=== PATIENT | female | born 1985 | race Caucasian/White ===

== ENCOUNTER 2016-09-26 08:48 | Outpatient (CLI) | payer BC ==
[2015-09-04 06:46] VITALS: BP 127/77
--- NOTE | 2016-09-26 11:34 | CONSULTATION REPORT ---
CONSULTING PHYSICIAN: Min Luther MD HISTORY OF PRESENT ILLNESS: Geneva Sheldon is a 31-year-old white woman who has been diagnosed with having rheumatoid arthritis. The symptoms first began in December of 2015. She is rheumatoid factor and CCP antibody positive. Her rheumatoid factor is 81. CCP antibody was over 548. Despite her present medications, she continues to have an hour of morning stiffness, pain in her wrist, neck, lower back, and knees. She used to exercise regularly and she has been unable to do so. She was initially treated with prednisone for about a [id number] which greatly helped her symptoms; however, she put on a significant amount of weight. She presently has been for the past 7 months on Plaquenil 200 mg twice a day in combination with methotrexate 8 tablets weekly. Despite that, she continues to have the symptoms as above. She has no other associated symptoms except for some dry eyes. PAST MEDICAL HISTORY: 1. Rheumatoid arthritis. 2. Hypertension PAST SURGICAL HISTORY: 1. . 2. Cholecystectomy. PRESENT MEDICATIONS: 1. Plaquenil 200 mg twice a day. 2. Folic acid 1 mg daily. 3. Methotrexate 8 tablets weekly. 4. Cyclobenzaprine 10 mg twice a day. 5. Metoprolol 25 mg daily. 6. Hydrochlorothiazide 25 mg daily. ALLERGIES: She has no known drug allergies. SOCIAL HISTORY: She is . She does not smoke. She does not drink. REVIEW OF SYSTEMS: Review of systems are otherwise negative for any change in her weight, fatigue, weakness or fever, except for the loss of the ability to exercise. She has had no red or painful eyes and no loss of vision. She has had no dry mouth or mouth sores. No difficulty swallowing. No hoarseness. She has had no chest pain, shortness of breath, cough or wheezing. She has had no nausea, vomiting, or diarrhea. No dark stools or bloody stools. No urinary symptoms. No skin rashes, hives, or photosensitivity. She did experience some hair loss. No color changes of the feet in the cold. No problems with headaches, dizziness, fainting, or muscle spasms. She does admit to some problems with anxiety, depression, and difficulty sleeping. No swollen or tender lymph nodes. She is up to date on her primary care. Note: PPD is negative. Hepatitis serologies were checked and are negative. PHYSICAL EXAMINATION: Vital Signs: T: 98.2, R: 20, heart rate: 100, BP: 145/77. Weight: 245 pounds. HEENT: No definite alopecia. External ears and nose are unremarkable. No stomatitis or glossitis. No parotid swelling. Neck: No cervical nodes. No thyroid enlargement. Lungs: Clear bilaterally with no crackles, wheezing, or rubs. Heart: Regular rate and rhythm. Normal S1 and S2. Abdomen: Slightly obese and nontender with no hepatic or splenic enlargement. Vascular: No edema or cyanosis. Nail and Skin Exam: No rashes or nodules. Joint Exam: DIPs of her right and left hand are unremarkable. She has a little tenderness at PIPs #2 and #3 bilaterally. She has right 3rd MCP tenderness and swelling. She has tenderness in both wrists. No overt swelling. She has, however, loss of safety representative. She has good range of motion at the shoulders, just some tenderness. Neck range of motion is intact. Sternoclavicular and acromioclavicular joints are unremarkable. Knees show no medial joint line tenderness. No effusion. She has good flexion and extension. No instability and good alignment. Ankles are slightly tender and MTPs are unremarkable. Achilles tendon is unremarkable. DIAGNOSTIC STUDIES: Her last labs are from September 17, 2016, her CBC was within normal limits, hemoglobin was 13.4, white count 8.39, platelets were normal. AST and ALT were normal at 16 and 18. Medical records from the [facility] Rheumatology Department are reviewed as well. IMPRESSION: Seropositive rheumatoid arthritis of moderate to severe activity and on 2 disease-modifying agents failing to respond. PLAN: I would like to start the patient on Enbrel 50 mg subcutaneous weekly. Note: Her hepatitis serologies were reviewed and are negative. PPD was negative and thus I have deemed a letter of medical of necessity. Thank you very much. Best regards, VENTURA
--- NOTE | 2016-09-26 18:35 | Diagnostic Imaging Report ---
[facility] [address] [facility].[address] [address] Report Submission Date: Sep 26, 2016 3:58:10 PM FAMILY SERVICES ASSISTANT Patient Study Name: BELGICA POOL Date: Sep 26, 2016 1:19:31 PM FAMILY SERVICES ASSISTANT Modality Type: CR Gender: F Description: LOWER EXTREMITY : 81 Institution: [facility] Physician: DONELL NI Bilateral feet, 3 views. History: Rheumatoid arthritis. Findings: Right: The osseous structure the right foot are intact without an subacute fracture. The joint space and alignment are normal. There is no evidence of erosion, periarticular osteopenia or soft tissue swelling. Small plantar and dorsal calcaneal enthesophyte is noted. Left: The osseous structure the left foot are intact without an subacute fracture. The joint space and alignment are normal. There is no evidence of erosion, periarticular osteopenia or soft tissue swelling. Small plantar and dorsal calcaneal enthesophyte is noted. Impression: 1. No osseous abnormality in the bilateral feet. 2. No evidence of osseous erosion. Electronically signed on Sep 26, 2016 3:58:10 PM FAMILY SERVICES ASSISTANT by: Brian WHITEHEAD
--- NOTE | 2016-09-26 18:36 | Diagnostic Imaging Report ---
[facility] [address] [facility].[address] [id number] Report Submission Date: Sep 26, 2016 3:59:37 PM ONLINE CONTENT EDITOR Patient Study Name: BELGICA POOL Date: Sep 26, 2016 1:14:07 PM ONLINE CONTENT EDITOR Modality Type: CR Gender: F Description: UPPER EXTREMITY : 81 Institution: [facility] Physician: DONELL NI Bilateral hands, 3 views. History: Rheumatoid arthritis. Findings: Right: The osseous structures of the right hand are intact without acute fracture. The joint space and alignment are normal. There is no evidence of erosion, periarticular osteopenia or soft tissue swelling. Left: The osseous structures of the left hand are intact without acute fracture. The joint space and alignment are normal. There is no evidence of erosion, periarticular osteopenia or soft tissue swelling. Impression: 1. No acute osseous abnormality or evidence of osseous erosion. Electronically signed on Sep 26, 2016 3:59:37 PM ONLINE CONTENT EDITOR by: Brian WHITEHEAD
== END 2016-09-26 08:50 ==
LOC: RHEU 08:48
PROVIDERS: ATTEND Internal Medicine
DX: M05.79 Rheumatoid arthritis with rheumatoid factor of multiple sites without organ or systems involvement (principal); Z51.81 Encounter for therapeutic drug level monitoring; Z79.899 Other long term (current) drug therapy
CPT/HCPCS: 99203; 99204

== ENCOUNTER 2016-11-21 10:08 | Outpatient (CLI) | payer BC ==
[2015-09-04 06:46] VITALS: BP 127/77
--- NOTE | 2016-11-24 11:29 | OP Clinic Progress Note ---
REFERRING PHYSICIAN: Jered Hannah REASON FOR VISIT: Geneva Sheldon returns for follow up on her seropositive rheumatoid arthritis of multiple joints. She is feeling significantly better now that we have added Enbrel 50 mg subcutaneous weekly. She has no joint pain, swelling, or morning stiffness. She has lost 10 pounds by diet and exercise. She has no limitations in activities of daily living. Pain is presently zero over 10. PAST MEDICAL HISTORY: 1. Rheumatoid arthritis. 2. Hypertension. PAST SURGICAL HISTORY: 1. . 2. Cholecystectomy. PRESENT MEDICATIONS: 1. Plaquenil 200 mg twice a day. 2. Folic acid 1 mg daily. 3. Methotrexate 8 tablets weekly. 4. Enbrel 50 mg subcutaneous weekly. 5. Metoprolol 25 mg daily. 6. Hydrochlorothiazide 25 mg daily. ALLERGIES: She has no known drug allergies. SOCIAL HISTORY: She is . No smoking. No drinking. REVIEW OF SYSTEMS: Dry eyes remains unchanged, otherwise, no fevers, chills, sweats, chest pain, shortness of breath, cough, wheezing, nausea, vomiting, or diarrhea. No rashes. No mouth ulcers. PHYSICAL EXAMINATION: GENERAL: On exam, she looks well. VITAL SIGNS: Height: 5 feet 4 inches. Weight: 236 pounds. T: 97.8, R: 18 , heart rate 90, BP: 140/70. HEENT: Sclerae are anicteric. Conjunctivae are pink. No stomatitis or glossitis. LUNGS: Clear bilaterally with no crackles or wheezing. HEART: Regular rhythm. Normal S1 and S2. ABDOMEN: Soft and nontender. VASCULAR: No edema or cyanosis. PERIPHERAL JOINTS: DIPs, PIPs, MCPs, wrists, elbows, shoulders, hips, knees, ankles, and feet are all unremarkable with no swelling, warmth, tenderness, or deformity. DIAGNOSTIC STUDIES: I personally reviewed the x-rays of her hands, wrists, and feet. There is no significant joint space narrowing. There is some diffuse periarticular osteopenia. No definite erosions except for left MTP #5, which shows a small periosteal defect consistent with possible erosion. IMPRESSION: 1. Seropositive rheumatoid arthritis of multiple sites, improved and in remission. 2. High risk drug. No evidence of drug toxicity. Her last labs were again reviewed. PLAN: She will get labs done a week prior to her next visit in 3 months. Thank you very much. cc: Jered WHITEHEAD
== END 2016-11-21 10:10 ==
LOC: RHEU 10:08
PROVIDERS: ATTEND Internal Medicine
DX: M05.79 Rheumatoid arthritis with rheumatoid factor of multiple sites without organ or systems involvement (principal); Z79.899 Other long term (current) drug therapy
CPT/HCPCS: 99214

== ENCOUNTER 2017-01-01 12:05 | Outpatient (CLI) | payer BC ==
[2015-09-04 06:46] VITALS: BP 127/77
[2017-01-01 12:22] LABS: BASOPHILS % 0.6 (0.0-1.5); EOSINOPHILS % 1.8 % (0.0-6.8); MEAN CORPUSCULAR HEMOGLOBIN 31.5 pg (28.0-34.0); MEAN CORPUSCULAR VOLUME 91.6 fl (80.0-100.0); MONOCYTES % 3.8 % (0.0-11.0)
[2017-01-01 12:45] LABS: eGFR (African) > 60; eGFR (Non-African) > 60
[2017-01-01 17:11] LABS: VITAMIN D, 25-HYDROXY 17 ng/mL (30-100)
== END 2017-01-01 12:06 ==
LOC: LAB 12:05
PROVIDERS: ATTEND Physician Assistant
DX: R42 Dizziness and giddiness (principal)
CPT/HCPCS: 36415; 80053; 82306; 82607; 83735; 85025

== ENCOUNTER 2017-02-17 11:27 | Outpatient (CLI) | payer BC ==
[2015-09-04 06:46] VITALS: BP 127/77
[2017-02-17 11:48] LABS: BASOPHILS % 0.4 (0.0-1.5); EOSINOPHILS % 1.5 % (0.0-6.8); MEAN CORPUSCULAR HEMOGLOBIN 31.4 pg (28.0-34.0); MEAN CORPUSCULAR VOLUME 90.4 fl (80.0-100.0); NEUTROPHILS # 7.1 # k/uL (1.4-7.7)
[2017-02-17 12:09] LABS: eGFR (African) > 60; eGFR (Non-African) > 60
== END 2017-02-17 11:30 ==
LOC: LAB 11:27
PROVIDERS: ATTEND Internal Medicine
DX: M05.79 Rheumatoid arthritis with rheumatoid factor of multiple sites without organ or systems involvement (principal); Z79.899 Other long term (current) drug therapy
CPT/HCPCS: 36415; 80053; 85025; 85651

== ENCOUNTER 2017-02-20 09:43 | Outpatient (CLI) | payer BC ==
[2015-09-04 06:46] VITALS: BP 127/77
--- NOTE | 2017-02-23 13:25 | OP Clinic Progress Note ---
REASON FOR VISIT: Geneva Sheldon returns for follow up of seropositive rheumatoid arthritis of multiple joints. She is doing very well on her present regimen with no joint swelling, warmth, tenderness, morning stiffness, or pain. No limitations on activities of daily living. No new deformities. She continues to lose weight by diet and exercise. PAST MEDICAL HISTORY: 1. Rheumatoid arthritis. 2. Hypertension. PAST SURGICAL HISTORY: 1. . 2. Cholecystectomy. PRESENT MEDICATIONS: 1. Methotrexate 8 tablets weekly. 2. Enbrel 50 mg subcutaneous weekly. 3. Metoprolol 25 mg daily. 4. Hydrochlorothiazide 25 mg daily. 5. Folic acid 1 mg daily. 6. Plaquenil 200 mg twice a day. ALLERGIES: No known drug allergies. REVIEW OF SYSTEMS: No fevers, chills, sweats, chest pain, shortness of breath, cough, wheezing, nausea, vomiting, or diarrhea. No skin rashes or nodules. No numbness or tingling of the extremities. Her child will be starting kindergarten. PHYSICAL EXAMINATION: VITAL SIGNS: Height: 5 feet 4 inches. Weight: 240. T: 97.8, R: 18, heart rate 70, BP: 113/74. HEENT: Sclerae are anicteric. Conjunctivae are pink. No stomatitis or glossitis. LUNGS: Clear bilaterally with no crackles or wheezing. HEART: Regular rhythm. ABDOMEN: Soft and nontender. VASCULAR: No edema or cyanosis. PERIPHERAL JOINTS: No synovitis at the DIPs, PIPs, MCPs, wrists, elbows, shoulders, hips, knees, ankles, and feet. IMPRESSION: 1. Seropositive rheumatoid arthritis of multiple joints, doing well. 2. High risk drugs. We will check her labs today for disease activity and drug toxicity. PLAN: I will see her back in 3 months. Thank you very much. Best regards, cc: KEVIN Haddad
== END 2017-02-20 13:51 ==
LOC: RHEU 09:43
PROVIDERS: ATTEND Internal Medicine
DX: M05.79 Rheumatoid arthritis with rheumatoid factor of multiple sites without organ or systems involvement (principal); Z79.899 Other long term (current) drug therapy
CPT/HCPCS: 99214

== ENCOUNTER 2017-05-22 14:38 | Outpatient (CLI) | payer BC ==
[2015-09-04 06:46] VITALS: BP 127/77
--- NOTE | 2017-05-22 15:48 | OP Clinic Progress Note ---
REASON FOR VISIT: Geneva Sheldon returns for follow up of seropositive rheumatoid arthritis of multiple joints on triple therapy consisting of methotrexate, Plaquenil, and Enbrel. She is doing quite well. No joint swelling, warmth, tenderness, morning stiffness or pain. She did have some left knee issues. 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 She is doing physical therapy. Unfortunately, she has had to stop exercising and she is no longer losing any weight. PAST MEDICAL HISTORY: 1. Rheumatoid arthritis. 2. Hypertension 3. . 4. Cholecystectomy. PRESENT MEDICATIONS: 1. Methotrexate 8 tablets weekly. 2. Enbrel 50 mg subcutaneous weekly. 3. Metoprolol 25 mg daily. 4. Hydrochlorothiazide 25 mg daily. 5. Folic acid 1 mg daily. 6. Plaquenil 200 mg twice a day. ALLERGIES: She has no known drug allergies. REVIEW OF SYSTEMS: No fevers, chills, sweats, chest pain, shortness of breath, cough, wheezing, nausea, vomiting, or diarrhea. PHYSICAL EXAMINATION: VITAL SIGNS: Height: 5 feet 4 inches. Weight: 250 pounds. T: 97.4, R: 20 , heart rate 95, BP: 147/93. HEENT: Sclerae are anicteric. Conjunctivae are pink. No stomatitis or glossitis. LUNGS: Clear bilaterally with no crackles or wheezing. HEART: Regular rhythm. ABDOMEN: Soft and nontender. VASCULAR: No edema or cyanosis. PERIPHERAL JOINTS: No synovitis at the DIPs, PIPs, MCPs, wrists, elbows, shoulders, hips, knees, ankles, and feet. IMPRESSION: 1. Rheumatoid arthritis, in remission. 2. High risk drug. No evidence of drug toxicity. PLAN: 1. We will check her labs in the coming week and again in 3 months. 2. I will see her back in follow up in August. Thank you very much. cc: KEVIN Haddad
== END 2017-05-22 14:40 ==
LOC: RHEU 14:38
PROVIDERS: ATTEND Internal Medicine
DX: M05.9 Rheumatoid arthritis with rheumatoid factor, unspecified (principal)
CPT/HCPCS: 99213

== ENCOUNTER 2017-05-25 08:06 | Outpatient (CLI) | payer BC ==
[2015-09-04 06:46] VITALS: BP 127/77
[2017-05-25 08:26] LABS: BASOPHILS % 0.9 (0.0-1.5); EOSINOPHILS % 3.8 % (0.0-6.8); MEAN CORPUSCULAR HEMOGLOBIN 31.5 pg (28.0-34.0); MEAN CORPUSCULAR VOLUME 88.4 fl (80.0-100.0); MONOCYTES % 3.5 % (0.0-11.0); NEUTROPHILS # 5.7 # k/uL (1.4-7.7)
[2017-05-25 08:48] LABS: eGFR (African) > 60; eGFR (Non-African) > 60
== END 2017-05-25 08:07 ==
LOC: LAB 08:06
PROVIDERS: ATTEND Internal Medicine
DX: M05.79 Rheumatoid arthritis with rheumatoid factor of multiple sites without organ or systems involvement (principal)
CPT/HCPCS: 36415; 80053; 85025; 85651; 86140

== ENCOUNTER 2017-06-22 11:01 | Outpatient (CLI) | payer BC, OTHER ==
[2015-09-04 06:46] VITALS: BP 127/77
[2017-06-22 11:09] LABS: BASOPHILS % 0.9 (0.0-1.5); EOSINOPHILS % 2.2 % (0.0-6.8); MEAN CORPUSCULAR HEMOGLOBIN 30.7 pg (28.0-34.0); MEAN CORPUSCULAR VOLUME 89.5 fl (80.0-100.0); MONOCYTES % 4.6 % (0.0-11.0); NEUTROPHILS # 3.9 # k/uL (1.4-7.7)
== END 2017-06-22 11:02 ==
LOC: LAB 11:01
PROVIDERS: ATTEND Physician Assistant
DX: R59.0 Localized enlarged lymph nodes (principal)
CPT/HCPCS: 36415; 85025

== ENCOUNTER 2017-08-17 09:51 | Outpatient (CLI) | payer BC ==
[2015-09-04 06:46] VITALS: BP 127/77
[2017-08-17 10:22] LABS: BASOPHILS % 0.8 (0.0-1.5); EOSINOPHILS % 3.2 % (0.0-6.8); MEAN CORPUSCULAR HEMOGLOBIN 30.8 pg (28.0-34.0); MEAN CORPUSCULAR VOLUME 88.5 fl (80.0-100.0); MONOCYTES % 4.5 % (0.0-11.0); NEUTROPHILS # 3.3 # k/uL (1.4-7.7)
[2017-08-17 11:06] LABS: eGFR (African) > 60; eGFR (Non-African) > 60
== END 2017-08-17 10:00 ==
LOC: LAB 09:51
PROVIDERS: ATTEND Internal Medicine
DX: M05.79 Rheumatoid arthritis with rheumatoid factor of multiple sites without organ or systems involvement (principal)
CPT/HCPCS: 36415; 80053; 85025; 85651; 86140

== ENCOUNTER 2017-08-21 10:55 | Outpatient (CLI) | payer BC ==
[2015-09-04 06:46] VITALS: BP 127/77
--- NOTE | 2017-08-21 14:04 | OP Clinic Progress Note ---
REASON FOR VISIT: Geneva Sheldon returns for follow up on her seropositive rheumatoid arthritis of multiple sites and she is doing quite well. She did have a cold and stopped her methotrexate for about 4 weeks and noted recurrent stiffness in her hands. Otherwise, no fevers, chills, sweats, chest pain, shortness of breath, cough, or wheezing. At the time of her illness, she had some slight sputum. She was not given an antibiotic. PAST MEDICAL HISTORY: 1. Rheumatoid arthritis. 2. Hypertension. 3. . 4. Cholecystectomy. PRESENT MEDICATIONS: 1. Methotrexate 8 tablets weekly. 2. Enbrel 50 mg subcutaneous weekly. 3. Plaquenil 200 mg twice a day. 4. Folic acid 1 mg daily. 5. Metoprolol. 6. Hydrochlorothiazide. ALLERGIES: She has no known drug allergies. REVIEW OF SYSTEMS: As above. PHYSICAL EXAMINATION: GENERAL: She looks well. VITAL SIGNS: Height: 5 feet 4 inches. Weight: 250 pounds. T: 96.7, R: 20, heart rate 96, BP: 150/100. HEENT: Conjunctivae are pink. No stomatitis or glossitis. LUNGS: Clear. HEART: Regular rhythm. ABDOMEN: Soft. VASCULAR: No edema or cyanosis. PERIPHERAL JOINTS: No synovitis at the DIPs, PIPs, MCPs, wrists, elbows, shoulders, hips, knees, ankles, and feet. IMPRESSION: 1. Seropositive rheumatoid arthritis. Doing well. 2. High risk drug. She had labs on August 17 which were reviewed and they were within normal limits including a CBC, CMP, and a sedimentation rate of 8. PLAN: I will see her back in 3 months. She will get her labs done a week before. Best regards, KEVIN Haddad
== END 2017-08-21 11:00 ==
LOC: RHEU 10:55
PROVIDERS: ATTEND Internal Medicine
DX: M05.89 Other rheumatoid arthritis with rheumatoid factor of multiple sites (principal); Z79.899 Other long term (current) drug therapy
CPT/HCPCS: 99213

== ENCOUNTER 2017-09-10 07:39 | Outpatient (CLI) | payer BC ==
[2015-09-04 06:46] VITALS: BP 127/77
[2017-09-10 09:12] LABS: BASOPHILS % 0.7 (0.0-1.5); EOSINOPHILS % 2.1 % (0.0-6.8); MEAN CORPUSCULAR VOLUME 87.4 fl (80.0-100.0); MONOCYTES % 5.1 % (0.0-11.0); NEUTROPHILS # 3.3 # k/uL (1.4-7.7)
[2017-09-10 09:16] LABS: eGFR (African) > 60; eGFR (Non-African) > 60
== END 2017-09-10 07:40 ==
LOC: LAB 07:39
PROVIDERS: ATTEND Physician Assistant
DX: Z00.00 Encounter for general adult medical examination without abnormal findings (principal)
CPT/HCPCS: 36415; 80053; 80061; 85025

== ENCOUNTER 2017-11-17 08:15 | Outpatient (CLI) | payer BC ==
[2015-09-04 06:46] VITALS: BP 127/77
[2017-11-17 08:31] LABS: BASOPHILS % 0.6 (0.0-1.5); EOSINOPHILS % 2.2 % (0.0-6.8); MEAN CORPUSCULAR VOLUME 90.5 fl (80.0-100.0); MONOCYTES % 4.5 % (0.0-11.0)
[2017-11-17 08:51] LABS: eGFR (African) > 60; eGFR (Non-African) > 60
== END 2017-11-17 08:20 ==
LOC: LAB 08:15
PROVIDERS: ATTEND Internal Medicine
DX: M05.79 Rheumatoid arthritis with rheumatoid factor of multiple sites without organ or systems involvement (principal)
CPT/HCPCS: 36415; 80053; 85025; 86140

== ENCOUNTER 2017-11-20 10:35 | Outpatient (CLI) | payer BC ==
[2015-09-04 06:46] VITALS: BP 127/77
--- NOTE | 2017-11-25 13:29 | OP Clinic Progress Note ---
REASON FOR VISIT: Geneva Sheldon returns for follow up on her seropositive rheumatoid arthritis of multiple sites. She is doing well. She is not having any joint swelling, warmth, tenderness, morning stiffness or pain. She has managed to lose weight by dieting, at least 20 pounds, and feels significantly better. She has noted that some foods make her joints act up. PAST MEDICAL HISTORY: 1. Seropositive rheumatoid arthritis. 2. Hypertension. 3. . 4. Cholecystectomy. PRESENT MEDICATIONS: 1. Methotrexate 8 tablets weekly. 2. Enbrel 50 mg subcutaneous weekly. 3. Plaquenil 200 mg twice a day. 4. Folic acid 1 mg daily. 5. Metoprolol. 6. Hydrochlorothiazide. ALLERGIES: She has no known drug allergies. REVIEW OF SYSTEMS: No fevers, chills, sweats, chest pain, shortness of breath, cough, wheezing, nausea, vomiting, or diarrhea. PHYSICAL EXAMINATION: General: She looks well. VITAL SIGNS: Weight: 235. T: 97.6, heart rate 74, BP: 140/80. HEENT: Sclerae are anicteric. Conjunctivae are pink. No stomatitis or glossitis. LUNGS: Clear. HEART: Regular rhythm. ABDOMEN: Soft. VASCULAR: No edema or cyanosis. PERIPHERAL JOINTS: No synovitis at the DIPs, PIPs, MCPs, wrists, elbows, shoulders, hips, knees, ankles, and feet. LABORATORIES: I reviewed her labs, CBC and CMP, from November 17 and they were unremarkable. Her CRP has improved and it is presently down to 0.57. IMPRESSION: Seropositive rheumatoid arthritis, active and stable. Doing well. PLAN: 1. I will see her back in 3 months. 2. We will check her labs a week before. Best regards, cc: KEVIN Haddad
== END 2017-11-20 13:29 ==
LOC: RHEU 10:35
PROVIDERS: ATTEND Internal Medicine
DX: M06.89 Other specified rheumatoid arthritis, multiple sites (principal)
CPT/HCPCS: 99213; 99214

== ENCOUNTER 2018-02-17 13:03 | Outpatient (CLI) | payer BC ==
[2015-09-04 06:46] VITALS: BP 127/77
[2018-02-17 13:24] LABS: BASOPHILS % 0.5 (0.0-1.5); EOSINOPHILS % 2.8 % (0.0-6.8); MEAN CORPUSCULAR HEMOGLOBIN 30.7 pg (28.0-34.0); MEAN CORPUSCULAR VOLUME 92.5 fl (80.0-100.0)
[2018-02-17 13:49] LABS: eGFR (African) > 60; eGFR (Non-African) > 60
== END 2018-02-17 13:04 ==
LOC: LAB 13:03
PROVIDERS: ATTEND Internal Medicine
DX: M05.79 Rheumatoid arthritis with rheumatoid factor of multiple sites without organ or systems involvement (principal); Z79.899 Other long term (current) drug therapy
CPT/HCPCS: 36415; 80053; 85025; 86140

== ENCOUNTER 2018-02-19 09:56 | Outpatient (CLI) | payer BC ==
[2015-09-04 06:46] VITALS: BP 127/77
--- NOTE | 2018-02-25 07:16 | OP Clinic Progress Note ---
REASON FOR VISIT: Geneva Sheldon returns for follow up on her seropositive rheumatoid arthritis of multiple sites. She is doing well except for her left ankle and maybe the left knee, worse with walking. It is intermittent. She has not noted any swelling or deformities. Otherwise, no new medical problems. On review of systems, she continues to lose weight by dieting. She is down from 235 on her last visit to 230 at present. Otherwise, no fevers, chills, sweats, chest pain, shortness of breath, cough, wheezing, nausea, vomiting or diarrhea. She has no numbness or tingling of her extremities. PAST MEDICAL AND SURGICAL HISTORY: 1. Seropositive rheumatoid arthritis. 2. Hypertension. 3. . 4. Cholecystectomy. PRESENT MEDICATIONS: 1. Methotrexate 8 tablets weekly. 2. Plaquenil 200 mg twice a day. 3. Folic acid 1 mg daily. 4. Metoprolol. 5. Hydrochlorothiazide. 6. Enbrel 50 mg subcutaneous weekly. ALLERGIES: She has no known drug allergies. PHYSICAL EXAMINATION: GENERAL: She looks well. VITAL SIGNS: Height: 5 feet 4 inches. Weight: 230. T: 97.8, R: 20, heart rate of 74, BP: 140/77 HEENT: Sclerae are anicteric. Conjunctivae are pink. No stomatitis or glossitis. LUNGS: Clear with no crackles or wheezing. HEART: Regular rate and rhythm. ABDOMEN: Soft and nontender. VASCULAR: No edema or cyanosis. PERIPHERAL JOINTS: No synovitis at the DIPs, PIPs, MCPs, wrists, elbows, shoulders, hips, knees, ankles, and feet. Straight leg raising test on the left was unremarkable. LABORATORIES: Her labs from February 17 were reviewed. CBC was within normal limits. CMP within normal limits. Slightly cholesterol at 205. AST and ALT were normal. Vitamin D was low at 17. IMPRESSION: 1. Seropositive rheumatoid arthritis, active and stable. 2. High risk drug. No evidence of drug toxicity. PLAN: No changes at this time. I will see her back in 3 months. We will keep an eye on her vitamin D. Thank you very much. Best regards, VENTURA
== END 2018-02-19 12:21 ==
LOC: RHEU 09:56
PROVIDERS: ATTEND Internal Medicine
DX: M05.9 Rheumatoid arthritis with rheumatoid factor, unspecified (principal); Z79.899 Other long term (current) drug therapy
CPT/HCPCS: 99213; 99214

== ENCOUNTER 2018-05-03 08:35 | Outpatient (CLI) | payer BC ==
[2015-09-04 06:46] VITALS: BP 127/77
[2018-05-03 09:19] LABS: BASOPHILS % 0.9 (0.0-1.5); EOSINOPHILS % 5.5 % (0.0-6.8); MEAN CORPUSCULAR HEMOGLOBIN 31.3 pg (28.0-34.0); MEAN CORPUSCULAR VOLUME 88.6 fl (80.0-100.0); MONOCYTES % 7.2 % (0.0-11.0); NEUTROPHILS # 2.9 # k/uL (1.4-7.7)
--- NOTE | 2018-05-03 09:53 | Diagnostic Imaging Report ---
FLOWER BOWIE [facility] [address] [facility].[address] [address] Report Submission Date: May 03, 2018 9:27:29 AM CDT Patient Study Name: BELGICA POOL Date: May 03, 2018 8:49:04 AM CDT Modality Type: DX Gender: F Description: CHEST : 81 Institution: [facility] Physician: FLOWER BOWIE Examination: PA and lateral chest. History: Evaluate lung valdez. STERNAL CHEST PAIN X 1 DAY (Hx) Findings: PA and lateral views of the chest demonstrates a normal cardiac and mediastinal silhouette. Elevated right hemidiaphragm. No focal infiltrate. No blunting of the costophrenic margins. Osseous structures are appropriate for age. Impression: No acute pulmonary process. Electronically signed on May 03, 2018 9:27:29 AM CDT by: Bam WHITEHEAD
== END 2018-05-03 08:36 ==
LOC: RHEU 08:35
PROVIDERS: ATTEND Internal Medicine
DX: R07.1 Chest pain on breathing (principal)
CPT/HCPCS: 71046; 85025; 85379

== ENCOUNTER 2018-05-25 09:17 | Outpatient (CLI) | payer BC ==
[2015-09-04 06:46] VITALS: BP 127/77
[2018-05-25 12:55] LABS: eGFR (Non-African) > 60
[2018-05-26 01:51] LABS: BASO % 0.5 % (0.0-1.5); EOS % 2.6 % (0.0-6.8); LYMPH ABS # 1.89 thou/uL (0.60-4.00); MCH. 31.3 pg (28.0-34.0); MCV 89.4 fL (80.0-100.0); MONOCYTE % 4.9 % (0.0-11.0); MONOCYTE ABS # 0.31 thou/uL (0.00-0.90); PLATELET COUNT 273 thou/uL (130-400)
== END 2018-05-25 09:20 ==
LOC: LAB 09:17
PROVIDERS: ATTEND Internal Medicine
DX: M05.79 Rheumatoid arthritis with rheumatoid factor of multiple sites without organ or systems involvement (principal)
CPT/HCPCS: 80053; 85025; 85651; 86140

== ENCOUNTER 2018-06-25 12:48 | Outpatient (CLI) | payer BC ==
[2015-09-04 06:46] VITALS: BP 127/77
--- NOTE | 2018-06-28 14:59 | OP Clinic Progress Note ---
REASON FOR VISIT: Geneva Sheldon returns for follow up of seropositive rheumatoid arthritis of multiple sites. She is doing well with no joint pain in her right or left upper extremities. No new medical problems. PAST MEDICAL HISTORY: 1. Seropositive rheumatoid arthritis. 2. Hypertension. 3. . 4. Cholecystectomy. PRESENT MEDICATIONS: 1. Methotrexate 4 tablets once a week. 2. Plaquenil 200 mg twice a day. 3. Folic acid 1 mg daily. 4. Enbrel 50 mg subcutaneous weekly. 5. Metoprolol. 6. Hydrochlorothiazide. ALLERGIES: She has no known drug allergies. SOCIAL HISTORY: She is employed here at [employer]. Her insurance is not going to change in September. She will remain on her 's insurance. REVIEW OF SYSTEMS: No fevers, chills, sweats, chest pain, shortness of breath, cough, wheezing, nausea, vomiting, or diarrhea. Her weight has been stable. PHYSICAL EXAMINATION: GENERAL: She looks well. VITAL SIGNS: BP: 130/85, P: 71, R: 16, T: 98.7. Weight: 230. Pain is zero over 10. HEENT: Sclerae are anicteric. Conjunctivae are pink. No stomatitis or glossitis. LUNGS: Clear bilaterally with no crackles or wheezing. HEART: Regular rate and rhythm. ABDOMEN: Soft and nontender. VASCULAR: No edema or cyanosis. PERIPHERAL JOINTS: No synovitis at the DIPs, PIPs, MCPs, wrists, elbows, shoulders, hips, knees, ankles, and feet. LABORATORY: She brings in labs from April and May. Those were reviewed and in the record. ALT and AST were 38 and 20, respectively. White count is 6.26, hemoglobin 14.7. IMPRESSION: 1. Seropositive rheumatoid arthritis, active and stable. Doing well. 2. High risk drug. PLAN: 1. She will get labs done in 2 months. 2. I will see her back in October. Thank you very much. Best regards, VENTURA
== END 2018-06-25 12:50 ==
LOC: RHEU 12:48
PROVIDERS: ATTEND Internal Medicine
DX: M05.9 Rheumatoid arthritis with rheumatoid factor, unspecified (principal); Z79.899 Other long term (current) drug therapy
CPT/HCPCS: 99213; 99214

== ENCOUNTER 2018-08-23 10:03 | Outpatient (CLI) | payer BC ==
[2015-09-04 06:46] VITALS: BP 127/77
[2018-08-23 11:04] LABS: eGFR (Non-African) > 60
[2018-08-23 11:05] LABS: MEAN CORPUSCULAR HEMOGLOBIN 29.7 pg (28.0-34.0)
[2018-08-23 11:06] LABS: BASOPHILS % 0.4 (0.0-1.5); EOSINOPHILS % 2.6 % (0.0-6.8); MONOCYTES % 5.9 % (0.0-11.0); NEUTROPHILS # 3.5 # k/uL (1.4-7.7)
== END 2018-08-23 10:08 | disposition home or self-care (01) ==
LOC: LAB 10:03
PROVIDERS: ATTEND Internal Medicine
DX: M05.79 Rheumatoid arthritis with rheumatoid factor of multiple sites without organ or systems involvement (principal)
CPT/HCPCS: 36415; 80053; 85025; 85651

== ENCOUNTER 2018-08-27 08:22 | Outpatient (CLI) | payer BC ==
[2015-09-04 06:46] VITALS: BP 127/77
--- NOTE | 2018-09-08 09:04 | OP Clinic Progress Note ---
REASON FOR VISIT: Geneva Sheldon returns for follow up of seropositive rheumatoid arthritis. She is doing quite well. She has no joint pain, stiffness, or swelling. There have been no changes in medications or past medical history. REVIEW OF SYSTEMS: No fevers, chills, sweats, chest pain, shortness of breath, cough, wheezing, nausea, vomiting or diarrhea. PHYSICAL EXAMINATION: VITAL SIGNS: BP: 130/89, P: 100, T: 98. HEENT: Unremarkable. JOINTS: No synovitis at the DIPs, PIPs, MCPs, wrists, elbows, shoulders, hips, knees, ankles, and feet. IMPRESSION: Seropositive rheumatoid arthritis, active and stable. PLAN: Follow up in 3 months. VENTURA
== END 2018-08-27 08:28 ==
LOC: RHEU 08:22
PROVIDERS: ATTEND Internal Medicine
DX: M05.9 Rheumatoid arthritis with rheumatoid factor, unspecified (principal)
CPT/HCPCS: 99212

== ENCOUNTER 2018-09-08 10:11 | Outpatient (CLI) | payer BC ==
[2015-09-04 06:46] VITALS: BP 127/77
[2018-09-08 10:26] LABS: BASOPHILS % 0.4 (0.0-1.5); EOSINOPHILS % 2.8 % (0.0-6.8); MEAN CORPUSCULAR HEMOGLOBIN 28.7 pg (28.0-34.0); MONOCYTES % 4.4 % (0.0-11.0)
== END 2018-09-08 10:12 ==
LOC: LAB 10:11
PROVIDERS: ATTEND Nurse Practitioner Family
DX: R58 Hemorrhage, not elsewhere classified (principal)
CPT/HCPCS: 36415; 84703; 85025

== ENCOUNTER 2018-09-15 12:48 | Outpatient (CLI) | payer BC ==
[2015-09-04 06:46] VITALS: BP 127/77
--- NOTE | 2018-09-16 18:31 | Diagnostic Imaging Report ---
ALEXA GONZALES [facility] [address] [facility] [address] [address] Report Submission Date: Sep 16, 2018 2:48:47 PM BUILDING MAINTENANCE SUPERVISOR Patient Study Name: BELGICA POOL Date: Sep 15, 2018 1:06:11 PM BUILDING MAINTENANCE SUPERVISOR Modality Type: US Gender: F Description: US TRV PELVIS : 81 Institution: [facility] Physician: ALEXA GONZALES Pelvic ultrasound History: Heavy bleeding with clots Transverse and longitudinal images were obtained through the pelvis endovaginally. There are no relevant comparison studies. The uterus measures 8.9 x 4.7 x 5.1 cm in greatest dimension. The endometrium measures up to 1.4 cm. This degree of endometrial stripe thickening would not be unexpected in a premenopausal female at mid to late cycle. No uterine fibroids are noted. The left ovary measures 2.3 x 2.0 x 1.7 cm in greatest dimension with an ovarian volume of 4 mm. The right ovary measures 3.0 x 1.9 x 1.9 cm with a volume of 5.7 mL. There is normal flow to both ovaries. Both ovaries appear normal. There is no free fluid in the pelvis. Impression: Normal ovaries. The endometrium measures 1.4 cm in thickness. The myometrium is normal. Electronically signed on Sep 16, 2018 2:48:47 PM BUILDING MAINTENANCE SUPERVISOR by: Anne WHITEHEAD
== END 2018-09-15 12:50 | disposition home or self-care (01) ==
LOC: RAD 12:48
PROVIDERS: ATTEND Nurse Practitioner Family
DX: N92.1 Excessive and frequent menstruation with irregular cycle (principal)
CPT/HCPCS: 76830

== ENCOUNTER 2018-09-30 14:15 | Outpatient (CLI) | payer BC ==
[2015-09-04 06:46] VITALS: BP 127/77
--- NOTE | 2018-10-07 09:36 | OP Clinic Progress Note ---
SUBJECTIVE: Geneva Sheldon is a 33-year-old female who presents today complaining of right great toenail pain. She states that she has had this for quite some time now and has been waiting to get it fixed. She states that the pain is mostly due to when the toenail is pressed down and seems to affect the lateral border, as well as directly under the nail. She admits that she has had debris under the nail which has been causing pain and problems. She does not admit to any other pain or problems with the foot specifically at this time. The patient states that she would like to have the toenail removed if possible and due to the discoloration in her toenail, as well as the subungual debris, would like to consider having fungal treatment as well. The patient does not admit to any fevers, chills, nausea, vomiting, shortness of breath or chest pain or any sort of illness at this time. She does have rheumatoid arthritis but she seems to be doing well at this time and blood flow seems to be great. OBJECTIVE: VITAL SIGNS: BP: 158/92, heart rate 108, R: 16, T: 98.0 degrees Fahrenheit. VASCULAR: DP and PT pulses of the right foot are at 2+. Capillary refill time is less than 3 seconds to the toes of the right foot. There is no edema noted of the right foot. DERMATOLOGIC: There is white discoloration and thickness and subungual debris noted to the right great toenail. There is no erythema or open lesions or skin lesions noted to the right foot. MUSCULOSKELETAL: There is pain on palpation noted especially with direct palpation against the dorsal aspect of the right great toenail but also a little bit at the lateral nail border today. There are no other gross abnormalities noted. NEUROLOGIC: Light touch sensation is intact to the toes of the right foot. ASSESSMENT: 1. Onychocryptosis, right hallux, lateral border. 2. Onychomycosis, right hallux. A discussion was had regarding possibilities of removing the toenail due to pain directly to the nail with subungual debris, as well as considering Lamisil for treatment. The patient elects to go ahead and have the toenail removed completely as a temporary avulsion of the total nail and to begin Lamisil treatment, as she had recent labs showing her liver function is fine. The toenail was removed as procedure #1 describes below and she is being placed on Lamisil for the next 3 months. We will see her in 1 week for follow up of the toenail and we will see her again 2 weeks later or at the 6 week total tay to make sure she is improving with the Lamisil and get labs at that time. She already has labs scheduled for the middle of November, so we will just look for those results. PROCEDURE #1: Total right great toenail avulsion, temporary. An alcohol swab was utilized to clean the toe. Then 7 mL of a 1:1 mix of 2% lidocaine plain and 0.5% Marcaine plain were injected and anesthesia was obtained. It should be noted that 6 mL were injected initially and we needed to inject another 1 mL as we noted a little bit of pain on the medial border. After anesthesia was obtained, the procedure was continued with a Betadine swab to clean the great toe. The great toe then had the eponychium released from the dorsal toenail, as well as the nail bed released from the nail and the entire toenail was removed. Bleeding was controlled with hemostasis. The toenail bed was free of any sort of laceration or concerning areas. The entire nail was checked and found to be absent from under the eponychial fold. The wound site was flushed with a copious amount of normal saline and then dressed with triple antibiotic ointment, 4 x 4 gauze, 2-inch Raza, and 1-inch Coban. The patient was given instructions regarding removing this dressing tomorrow and beginning dressing changes of antibiotic ointment and a Band-Aid daily. She knows that she is not to bathe at this time, but she is able to shower as long as she washes her toe last. A prescription for Lamisil is being written and sent to her pharmacy at [facility] where she can pick that up and begin utilizing that immediately. PLAN: We will see the patient again in 1 week as mentioned above to make sure she is healing well and then possibly 2 weeks later and then 3 weeks after that to check labs and make sure that her nail is coming more clear. The patient has no other questions and is grateful for the procedure and is glad that it went well. It should be noted that risks and benefits of the procedure were discussed with the patient that include bleeding, infection, etc., and the patient had agreed by both written and verbal consent to go forward with the procedure today as described above. VENTURA
== END 2018-09-30 14:16 ==
LOC: POD 14:15
PROVIDERS: ATTEND Podiatrist Foot & Ankle Surgery
DX: L60.0 Ingrowing nail (principal); B35.1 Tinea unguium
CPT/HCPCS: 11730; J3490

== ENCOUNTER 2018-10-13 07:11 | Outpatient (CLI) | payer BC ==
[2015-09-04 06:46] VITALS: BP 127/77
[2018-10-13 17:49] LABS: eGFR (Non-African) > 60
== END 2018-10-13 07:13 ==
LOC: LAB 07:11
PROVIDERS: ATTEND Nurse Practitioner Family
DX: I10 Essential (primary) hypertension (principal)
CPT/HCPCS: 36415; 80053; 80061

== ENCOUNTER 2018-12-02 07:42 | Outpatient (CLI) | payer BC ==
[2015-09-04 06:46] VITALS: BP 127/77
== END 2018-12-02 07:44 ==
LOC: LAB 07:42
PROVIDERS: ATTEND Podiatrist Foot & Ankle Surgery
DX: B35.1 Tinea unguium (principal)
CPT/HCPCS: 36415; 80076

== ENCOUNTER 2018-12-20 11:19 | Outpatient (CLI) | payer BC ==
[2015-09-04 06:46] VITALS: BP 127/77
--- NOTE | 2018-12-20 12:48 | Diagnostic Imaging Report ---
DAVID PINA [facility] [address] [facility].[address] [address] Report Submission Date: Dec 20, 2018 12:01:26 PM CDT Patient Study Name: BELGICA POOL Date: Dec 20, 2018 11:23:29 AM CDT Modality Type: DX Gender: F Description: BILAT ANKLES 3 VIEW : 81 Institution: [facility] Physician: DAVID PINA Bilateral ankles History: Chronic pain Three views of the bilateral ankles were obtained at weight-bearing which demonstrates no abnormalities of the ankle joints. There is a small right plantar calcaneal spur and a large left plantar calcaneal spur. Impression: Unremarkable bilateral ankles. Calcaneal spurring as described. Electronically signed on Dec 20, 2018 12:01:26 PM CDT by: Anne WHITEHEAD
== END 2018-12-20 11:21 ==
LOC: LAB 11:19
PROVIDERS: ATTEND Podiatrist Foot & Ankle Surgery
DX: M77.31 Calcaneal spur, right foot (principal); M77.32 Calcaneal spur, left foot

== ENCOUNTER 2018-12-27 09:39 | Outpatient (CLI) | payer OTHER, BC ==
[2015-09-04 06:46] VITALS: BP 127/77
[2018-12-27 10:14] LABS: BASOPHILS % 1.3 % (0.0-1.5); EOSINOPHILS % 4.2 % (0.0-6.8); MEAN CORPUSCULAR HEMOGLOBIN 29.6 pg (28.0-34.0); MONOCYTES % 4.3 % (0.0-11.0); NEUTROPHILS # 3.1 # k/uL (1.4-7.7)
[2018-12-27 10:31] LABS: eGFR (Non-African) > 60
== END 2018-12-27 09:41 ==
LOC: LAB 09:39
PROVIDERS: ATTEND Nurse Practitioner Family
DX: M06.9 Rheumatoid arthritis, unspecified (principal); E55.9 Vitamin D deficiency, unspecified
CPT/HCPCS: 36415; 80053; 82306; 85025; 85651; 86140

== ENCOUNTER 2019-01-03 08:50 | Outpatient (CLI) | payer OTHER, BC ==
[2015-09-04 06:46] VITALS: BP 127/77
--- NOTE | 2019-01-03 10:21 | Diagnostic Imaging Report ---
ALEXA GONZALES [facility] [address] [facility].[address] [id number] Report Submission Date: Jan 03, 2019 9:35:55 AM CDT Patient Study Name: BELGICA POOL Date: Jan 03, 2019 9:14:12 AM CDT Modality Type: DX Gender: F Description: KNEE 3 VIEWS : 81 Institution: [facility] Physician: ALEXA GONZALES Examination: Plain film left knee History: FLUID BUILD UP IN LEFT KNEE. PAIN Findings: 3 views of the left knee demonstrates mild articular spurring. No fracture. No dislocation. No joint effusion. No soft tissue irregularity. Impression: Mild degenerative changes. No acute appearing osseous abnormality Electronically signed on Jan 03, 2019 9:35:55 AM CDT by: Bam WHITEHEAD
== END 2019-01-03 08:52 | disposition home or self-care (01) ==
LOC: RAD 08:50
PROVIDERS: ATTEND Nurse Practitioner Family
DX: M25.562 Pain in left knee (principal); M25.462 Effusion, left knee
CPT/HCPCS: 73562

== ENCOUNTER 2019-04-14 11:25 | Outpatient (CLI) | payer BC ==
[2015-09-04 06:46] VITALS: BP 127/77
--- NOTE | 2019-04-19 11:40 | OP Clinic Progress Note ---
GENEVA SHELDON ADMISSION #.: [id number] : 1985 DATE OF VISIT: 04/14/2019 SUBJECTIVE: Geneva Sheldon is a 33-year-old female presenting to clinic today for follow up of right heel plantar fasciitis. She was seen most recently on January 10, 2019 where she was diagnosed with plantar fasciitis as well as gastrocnemius equinus of the right lower extremity. The patient was given stretching exercises and encouraged to be in appropriate Fleet [employer]et Superfeet inserts, etc. The patient has been doing stretching exercises approximately twice daily. She is doing good walking and trying to use good inserts that she obtained in her shoes. Unfortunately she is not able to use those in all of her shoes at this time. She does admit that she still has pain in that heel and would like to consider a steroid injection as the pain is still pretty severe in the right plantar fascia area at the plantar medial calcaneal tubercle area. She does not admit to any fevers, chills, nausea, vomiting, shortness of breath or chest pain at this time. OBJECTIVE: Vitals: Temperature 97.7 degrees Fahrenheit, heart rate 79, respiration rate 16, blood pressure 129/82. O2 saturation is 98% on room air. Vascular: 2+ DP and PT pulses, right foot. Capillary refill time is less than 3 seconds to the toes of the right foot. There is perhaps mild edema noted at the plantar medial heel of the right lower extremity. Dermatologic: There is no ecchymosis, open lesions, erythema or any sort of drainage noted right foot. Musculoskeletal: There is still moderate to severe pain on palpation noted at the plantar medial calcaneal tubercle right foot. There is not really much or any pain noted in the right plantar central heel. There is no pain on palpation noted on the posterior heel or Achilles tendon area. There is limited ankle dorsiflexion to 90 degrees with the knee extended that is improved to approximately 5 to 7 degrees with the knee flexed on the right lower extremity. This was checked today. Neurologic: Light touch sensation is intact to the toes, right foot. ASSESSMENT AND PLAN: 1. Plantar fasciitis, right heel. 2. Gastrocnemius equinus, right lower extremity. PROCEDURE #1: A steroid injection into the right plantar fascia was performed today. Risks and benefits of the procedure including but not limited to bleeding, infection and steroid flare were discussed with the patient. She agreed both by written and verbal consent to go forward with the procedure for a steroid injection in the right plantar fascia region near the right heel. Consent was signed and placed in the chart. An alcohol swab was utilized to cleanse the plantar medial calcaneal tubercle skin site area of the right heel and a cold sprayer was used and an injection consisting of 1 cc of 2% lidocaine plain, 1 cc of 0.5% Marcaine plain, 0.5 cc of dexamethasone 4 mg/mL and 0.5 cc of Kenalog 40 mg/mL were injected into the patient's right heel plantar fascia origin area. Aspiration was performed appropriately to make sure there was no injecting into vessels. The patient tolerated the procedure well. Hemostasis was obtained with pressure and a Band- Aid was applied. The patient will continue stretching exercises in order to have the best chance of eliminating this problem. The patient was encouraged to use her inserts appropriately to give the support she needs in her shoes. She will need to continue her home treatment exercises in order to have the best chance of this healing and not obviously just rely on the injection. Return to clinic in one month for follow up. We may consider a follow-up injection if she continues to have some pain as long as it helps some. We will also consider physical therapy and night splint if this is not improving so far. Milly CarrionP.M.(Dictated/not signed) /[employer] [id number] /mab MTDD
== END 2019-04-14 11:50 ==
LOC: POD 11:25
PROVIDERS: ATTEND Podiatrist Foot & Ankle Surgery
DX: M72.2 Plantar fascial fibromatosis (principal); M21.6X1 Other acquired deformities of right foot
CPT/HCPCS: 20550; 99213; J1100; J3301; J3490; A4554

== ENCOUNTER 2019-07-18 08:53 | Outpatient (CLI) | payer BC ==
[2015-09-04 06:46] VITALS: BP 127/77
[2019-07-18 09:24] LABS: BASOPHILS % 0.5 % (0.0-1.5); NEUTROPHILS # 2.5 # k/uL (1.4-7.7)
== END 2019-07-18 08:58 ==
LOC: LAB 08:53
PROVIDERS: ATTEND Internal Medicine Rheumatology
DX: M05.70 Rheumatoid arthritis with rheumatoid factor of unspecified site without organ or systems involvement (principal); Z92.22 Personal history of monoclonal drug therapy
CPT/HCPCS: 36415; 80076; 85025; 85651; 86140